=== PATIENT | female | born 1950 | race Caucasian/White ===

== ENCOUNTER 2017-02-20 17:12 | Inpatient (IN) | payer BC, OTHER ==
[~2017-02-20] VITALS: Ht 175.3 cm; Wt 110.0 kg
[~2017-02-20 17:12] MED LIST: AMIT50TA PO; ASPI325T4 PO; CLON-364 PO; CLON0.5T20 PO; ESTR0.5T PO; FURO-93 PO; FURO20TA3 PO; GABA300C10 PO; GABA600T2 PO; HYDR-3241 PO; HYDR25TA6 PO; HYDR5TAB2 PO; LEVO750T26 PO; LEVO75TA5 PO; LIDO700A5 TD; LISI-167 PO; LISI-170 PO; METO25TA91 PO; OXYC10TA32 PO; PANT40TA5 PO; POLY17PO5 PO; POTA10TA5 PO; POTA20TA14 PO; TRAM50TA2 PO
[2017-02-20] MEDS ORDERED: SODIUM CHLORIDE 0.9% 1,000ML IVBOLUS ONE ×2 (17:30→19:00)
[2017-02-20] MEDS ORDERED: SODIUM CHLORIDE FLUSH 10ML SYR IVF ONE (17:30)
[2017-02-20] MEDS ORDERED: TIZA4TAB PO (17:47)
[2017-02-20] MEDS ORDERED: DULO30CA2 PO (17:47)
[2017-02-20] MEDS ORDERED: FURO20TA3 PO (17:47)
[2017-02-20] MEDS ORDERED: SPIR25TA3 PO (17:47)
[2017-02-20] MEDS ORDERED: HYDR-879 PO (17:47)
[2017-02-20 18:03] LABS: ASPARTATE AMINO TRANSFERASE 21 U/L (15-37); BLOOD UREA NITROGEN 24 mg/dL (7-18)
[2017-02-20 18:09] LABS: IS PT STATUS REG ER OR PRE ER? YES
[2017-02-20] MEDS ORDERED: POLYETHYLENE GLYCOL 17 GM PACKET PO PRN (21:00)
[2017-02-20] MEDS ORDERED: DOCUSATE 100 MG CAPSULE PO PRN (21:00)
[2017-02-20] MEDS ORDERED: ACETAMINOPHEN 325 MG TABLET PO PRN (21:00)
[2017-02-20] MEDS ORDERED: TRAZODONE 50MG TABLET PO PRN (21:00)
[2017-02-20] MEDS ORDERED: BISACODYL 10 MG SUPP PR PRN (21:00)
[2017-02-20] MEDS ORDERED: LABETALOL 5MG/ML, 20ML IVPush PRN (21:00)
[2017-02-20] MEDS: SODIUM CHLORIDE 0.9% 1,000 ML IV SCH (23:10)
[2017-02-20] MEDS: HEPARIN 5,000 UNITS/ML, 1ML SQ SCH (23:11)
[2017-02-20 23:19] VITALS: BP 112/75
[2017-02-21 03:03] VITALS: BP 108/72
[2017-02-21] MEDS: GABAPENTIN 300 MG CAPSULE PO SCH ×2 (05:54→10:17)
[2017-02-21] MEDS: HEPARIN 5,000 UNITS/ML, 1ML SQ SCH (05:54)
[2017-02-21] MEDS: HYDROcodone/APAP 10/325 MG TABLET PO SCH ×2 (05:54→11:00)
[2017-02-21] MEDS ORDERED: LEVOTHYROXINE 75 MCG TABLET PO SCH (06:00)
[2017-02-21] MEDS ORDERED: ASPIRIN 325 MG TABLET PO SCH (06:00)
[2017-02-21 06:37] LABS: BLOOD UREA NITROGEN 20 mg/dL (7-18)
[2017-02-21 07:13] VITALS: BP 134/74
[2017-02-21] MEDS: SODIUM CHLORIDE 0.9% 1,000 ML IV SCH (08:16)
[2017-02-21] MEDS ORDERED: TIZANIDINE 4MG TABLET PO SCH (09:00)
[2017-02-21] MEDS ORDERED: DULOXETINE 30 MG CAPSULE.DR PO SCH (09:00)
[2017-02-21] MEDS ORDERED: FURO20TA3 PO (11:34)
[2017-02-21] MEDS ORDERED: AMOX1TAB61 PO (17:38)
== END 2017-02-21 13:28 | disposition home or self-care (01) | DRG 640 ==
LOC: ED 19:25 → EDIP 19:31 → ED 19:36 → 4EST 20:36
PROVIDERS: ADMIT Internal Medicine; ATTEND Internal Medicine
DX: E86.1 Hypovolemia (principal); N17.0 Acute kidney failure with tubular necrosis; I50.32 Chronic diastolic (congestive) heart failure; N39.0 Urinary tract infection, site not specified; I95.89 Other hypotension; B34.9 Viral infection, unspecified; R79.89 Other specified abnormal findings of blood chemistry; I11.0 Hypertensive heart disease with heart failure; Z86.73 Personal history of transient ischemic attack (TIA), and cerebral infarction without residual deficits; J44.9 Chronic obstructive pulmonary disease, unspecified; Z83.3 Family history of diabetes mellitus; Z82.49 Family history of ischemic heart disease and other diseases of the circulatory system; I48.0 Paroxysmal atrial fibrillation; F41.9 Anxiety disorder, unspecified; E03.9 Hypothyroidism, unspecified; D64.9 Anemia, unspecified; D72.829 Elevated white blood cell count, unspecified; Z98.84 Bariatric surgery status; G89.29 Other chronic pain; M54.9 Dorsalgia, unspecified; I67.1 Cerebral aneurysm, nonruptured; B96.20 Unspecified Escherichia coli [E. coli] as the cause of diseases classified elsewhere; E11.9 Type 2 diabetes mellitus without complications; Z95.0 Presence of cardiac pacemaker
CPT/HCPCS: 36415; 70450; 71010; 80048; 80053; 81001; 82533; 83735; 84439; 84443; 84484; 85025; 87077; 87086; 87186; 93005; 96360; 96361; J1644; J7030

== ENCOUNTER 2017-08-05 10:19 | Day surgery (SDC) | payer BC, OTHER ==
[~2017-08-05] VITALS: Ht 172.7 cm; Wt 98.1 kg
[~2017-08-05 10:19] MED LIST changes: +AMOX1TAB61 PO; +ASPI325T17 PO; -ASPI325T4 PO; +DULO30CA2 PO; +HYDR-879 PO; -OXYC10TA32 PO; +OXYC10TA47 PO; +SPIR25TA3 PO; +TIZA4TAB PO
[2017-08-05] MEDS ORDERED: LACTATED RINGERS 1,000 ML IV SCH (11:45)
[2017-08-05] MEDS ORDERED: EPINEPHRINE 1 MG/ML, 1ML ONE (11:56)
[2017-08-05] MEDS ORDERED: BUPIVACAINE/PF 0.5% ONE (11:56)
[2017-08-05 12:12] VITALS: BP 136/85
[2017-08-05] MEDS ORDERED: FENTANYL PF 100 MCG/2ML ONE (12:19)
[2017-08-05] MEDS ORDERED: MIDAZOLAM 1 MG/ML, 2ML ONE (12:19)
[2017-08-05] MEDS ORDERED: PROPOFOL 10 MG/ML, 20ML ONE (12:22)
[2017-08-05] MEDS ORDERED: ONDANSETRON 2MG/ML, 2ML ONE (12:22)
[2017-08-05] MEDS ORDERED: DEXAMETHASONE 4 MG/ML, 1ML ONE ×2 (12:23)
[2017-08-05] MEDS ORDERED: CLINDAMYCIN 150 MG/ML, 6ML ONE (13:10)
[2017-08-05] MEDS ORDERED: FENTANYL PF 100 MCG/2ML IV PRN (14:00)
[2017-08-05] MEDS ORDERED: ONDANSETRON 2MG/ML, 2ML IVPush PRN (14:00)
[2017-08-05] MEDS ORDERED: ACETAMINOPHEN 325 MG TABLET PO PRN (14:00)
[2017-08-05] MEDS ORDERED: KETOROLAC 30 MG/1 ML IV PRN (14:00)
[2017-08-05] MEDS ORDERED: OXYcodone 5 MG/5 ML ORAL.SOL UDC PO PRN (14:00)
== END 2017-08-05 15:40 ==
LOC: OUT 10:19
PROVIDERS: ATTEND Orthopaedic Surgery
DX: M65.331 Trigger finger, right middle finger (principal); K21.9 Gastro-esophageal reflux disease without esophagitis; Z90.710 Acquired absence of both cervix and uterus; Z87.39 Personal history of other diseases of the musculoskeletal system and connective tissue; Z98.890 Other specified postprocedural states
CPT/HCPCS: 26055; 93005; J0171; J1100; J2250; J2405; J2704; J3010; J3490; J7120

== ENCOUNTER 2017-08-18 15:01 | Emergency (ER) | payer BC, OTHER ==
[~2017-08-18] VITALS: Ht 167.6 cm; Wt 100.5 kg
[2017-08-18] MEDS ORDERED: CLINDAMYCIN PMX 600MG/50ML 50 ML ONE (15:55)
[2017-08-18] MEDS ORDERED: CLINDAMYCIN PMX 600MG/50ML 50 ML IV ONE (16:00)
[2017-08-18] MEDS ORDERED: SODIUM CHLORIDE FLUSH 10ML SYR IVF ONE (16:00)
[2017-08-18 16:05] LABS: HEMATOCRIT 35.4 % (34.6-47.8); HEMOGLOBIN 11.6 g/dL (11.7-16.4); WHITE BLOOD COUNT 7.5 x10^3/uL (3.4-10)
[2017-08-18 16:15] LABS: BLOOD UREA NITROGEN 27 mg/dL (7-18)
[2017-08-18 17:06] VITALS: BP 115/70
[2017-08-19] MEDS ORDERED: ASPI-496 PO (17:14)
[2017-08-19] MEDS ORDERED: POTA10TA5 PO (17:15)
[2017-08-19] MEDS ORDERED: FURO20TA3 PO (17:15)
== END 2017-08-18 17:42 | disposition home or self-care (01) ==
LOC: ED 17:30
DX: L03.113 Cellulitis of right upper limb (principal); I10 Essential (primary) hypertension; E11.9 Type 2 diabetes mellitus without complications; Z95.0 Presence of cardiac pacemaker
CPT/HCPCS: 36415; 80048; 82040; 85025; 85651; 86141; 96365

== ENCOUNTER 2017-08-19 16:09 | Inpatient (IN) | payer BC, OTHER ==
[~2017-08-19] VITALS: Ht 172.7 cm; Wt 107.0 kg
[2017-08-19] MEDS ORDERED: LIDOCAINE 1%, 2ML ONE (16:41)
[2017-08-19] MEDS ORDERED: PLEASE ENTER HEIGHT AND WEIGHT MC SCH (17:00)
[2017-08-19] MEDS ORDERED: LIDOCAINE 1%, 2ML SQ PRN (17:00)
[2017-08-19 17:05] VITALS: BP 119/69
[2017-08-19] MEDS: LACTATED RINGERS 1,000 ML IV SCH (17:11)
[2017-08-19] MEDS ORDERED: ASPI-496 PO (17:14)
[2017-08-19] MEDS ORDERED: FURO20TA3 PO (17:15)
[2017-08-19] MEDS ORDERED: POTA10TA5 PO (17:15)
[2017-08-19] MEDS ORDERED: FENTANYL PF 100 MCG/2ML ONE ×2 (18:59→19:57)
[2017-08-19] MEDS ORDERED: METOCLOPRAMIDE 5 MG/ML, 2ML ONE (19:00)
[2017-08-19] MEDS ORDERED: ONDANSETRON 2MG/ML, 2ML ONE (19:00)
[2017-08-19] MEDS ORDERED: PROPOFOL 10 MG/ML, 20ML ONE (19:00)
[2017-08-19] MEDS ORDERED: LIDOCAINE-MPF 2% ,5ML ONE (19:00)
[2017-08-19] MEDS ORDERED: CLINDAMYCIN 150 MG/ML, 6ML ONE (19:06)
[2017-08-19] MEDS ORDERED: PIPERACILLIN/TAZO/PMX 3.375GM 50 ML ONE (19:24)
[2017-08-19] MEDS ORDERED: VANCOMYCIN 1,000 MG ONE (19:24)
[2017-08-19] MEDS ORDERED: METOPROLOL 1 MG/ML, 5ML IV PRN (19:30)
[2017-08-19] MEDS ORDERED: hydrALAzine 20 MG/ML, 1ML IV PRN (19:30)
[2017-08-19] MEDS ORDERED: LABETALOL 5MG/ML, 20ML IV PRN (19:30)
[2017-08-19] MEDS ORDERED: MEPERIDINE/PF 25MG/0.5ML IVPush PRN (19:30)
[2017-08-19] MEDS ORDERED: HYDROmorphone 1 MG/ML, 1ML IV PRN (19:30)
[2017-08-19] MEDS ORDERED: EPHEDRINE 50 MG/ML, 1ML IVPush PRN (19:30)
[2017-08-19] MEDS ORDERED: ALBUTEROL SULFATE 2.5 MG/3 ML NPPB PRN (19:30)
[2017-08-19] MEDS ORDERED: ONDANSETRON 2MG/ML, 2ML IVPush PRN (19:30)
[2017-08-19] MEDS ORDERED: ACETAMINOPHEN 325 MG TABLET PO PRN (19:30)
[2017-08-19] MEDS ORDERED: OXYcodone 5 MG/5 ML ORAL.SOL UDC PO PRN (19:30)
[2017-08-19] MEDS ORDERED: OXYcodone 5 MG/5 ML ORAL.SOL UDC ONE (19:57)
[2017-08-19] MEDS: FENTANYL PF 100 MCG/2ML IV PRN ×2 (20:00→20:18)
[2017-08-19] MEDS ORDERED: FUROSEMIDE MC SCH (21:30)
[2017-08-19] MEDS ORDERED: GABAPENTIN 300 MG CAPSULE PO SCH (21:30)
[2017-08-19] MEDS ORDERED: POTASSIUM MC SCH (21:30)
[2017-08-19] MEDS ORDERED: ONDANSETRON 2MG/ML, 2ML IV PRN (21:30)
[2017-08-19] MEDS: morphine SULFATE 10 MG/ML, 1ML IV PRN ×2 (22:13→23:13)
[2017-08-19] MEDS: HYDROcodone/APAP 10/325 MG TABLET PO PRN (22:13)
[2017-08-19] MEDS ORDERED: FUROSEMIDE 20 MG TABLET PO PRN (23:00)
[2017-08-19] MEDS ORDERED: POTASSIUM CHLORIDE 10 MEQ TABLET.ER PO PRN (23:00)
[2017-08-19] MEDS: GABAPENTIN 300 MG CAPSULE PO SCH (23:05)
[2017-08-19] MEDS: AMITRIPTYLINE 50 MG TABLET PO SCH (23:05)
[2017-08-20] MEDS: morphine SULFATE 10 MG/ML, 1ML IV PRN ×3 (00:46→13:45)
[2017-08-20] MEDS: PIPERACILLIN/TAZO/PMX 3.375GM 50 ML IV SCH ×3 (04:02→21:32)
[2017-08-20] MEDS: HYDROcodone/APAP 10/325 MG TABLET PO PRN ×3 (04:23→17:57)
[2017-08-20 05:01] VITALS: BP 100/68
[2017-08-20] MEDS: ASPIRIN 81 MG TABLET EC PO SCH (05:52)
[2017-08-20] MEDS: LEVOTHYROXINE 75 MCG TABLET PO SCH (05:52)
[2017-08-20] MEDS ORDERED: VANCOMYCIN PMX 1GM/200ML 200 ML IVPB ONE (07:30)
[2017-08-20] MEDS: DULOXETINE 30 MG CAPSULE.DR PO SCH (08:38)
[2017-08-20] MEDS: TIZANIDINE 4MG TABLET PO SCH (08:38)
[2017-08-20] MEDS: SPIRONOLACTONE 25 MG TABLET PO SCH ×2 (08:38→21:32)
[2017-08-20] MEDS: GABAPENTIN 300 MG CAPSULE PO SCH ×2 (08:39→21:33)
[2017-08-20 13:07] VITALS: BP 99/63
[2017-08-20 13:21] VITALS: BP 116/55
[2017-08-20 20:03] VITALS: BP 91/62
[2017-08-20] MEDS: AMITRIPTYLINE 50 MG TABLET PO SCH (21:33)
[2017-08-21 04:29] VITALS: BP 122/78
[2017-08-21] MEDS: HYDROcodone/APAP 10/325 MG TABLET PO PRN ×3 (05:33→18:17)
[2017-08-21] MEDS: LEVOTHYROXINE 75 MCG TABLET PO SCH (05:33)
[2017-08-21] MEDS: ASPIRIN 81 MG TABLET EC PO SCH (05:33)
[2017-08-21] MEDS: PIPERACILLIN/TAZO/PMX 3.375GM 50 ML IV SCH ×2 (05:33→13:01)
[2017-08-21] MEDS: SPIRONOLACTONE 25 MG TABLET PO SCH ×2 (07:58→20:43)
[2017-08-21] MEDS: TIZANIDINE 4MG TABLET PO SCH (07:59)
[2017-08-21] MEDS: GABAPENTIN 300 MG CAPSULE PO SCH ×2 (07:59→20:43)
[2017-08-21] MEDS: DULOXETINE 30 MG CAPSULE.DR PO SCH (07:59)
[2017-08-21 08:06] VITALS: BP 130/92
[2017-08-21 13:34] LABS: HEMATOCRIT 30.9 % (34.6-47.8); HEMOGLOBIN 10.1 g/dL (11.7-16.4); WHITE BLOOD COUNT 4.6 x10^3/uL (3.4-10)
[2017-08-21 13:43] LABS: ASPARTATE AMINO TRANSFERASE 20 U/L (15-37); BLOOD UREA NITROGEN 19 mg/dL (7-18)
[2017-08-21 15:56] VITALS: BP 109/71
[2017-08-21] MEDS: AMPICILLIN/SULBACTAM 3 GM in SODIUM CHLORIDE 0.9% 100 ML IV SCH ×2 (17:43→23:38)
[2017-08-21 20:26] VITALS: BP 105/69
[2017-08-21] MEDS: AMITRIPTYLINE 50 MG TABLET PO SCH (20:43)
[2017-08-22 00:03] VITALS: BP 115/77
[2017-08-22] MEDS: HYDROcodone/APAP 10/325 MG TABLET PO PRN ×4 (00:08→18:25)
[2017-08-22] MEDS: AMPICILLIN/SULBACTAM 3 GM in SODIUM CHLORIDE 0.9% 100 ML IV SCH ×4 (05:47→23:41)
[2017-08-22] MEDS: ASPIRIN 81 MG TABLET EC PO SCH (05:47)
[2017-08-22] MEDS: LEVOTHYROXINE 75 MCG TABLET PO SCH (05:47)
[2017-08-22 07:27] VITALS: BP 136/74
[2017-08-22] MEDS: TIZANIDINE 4MG TABLET PO SCH (09:42)
[2017-08-22] MEDS: DULOXETINE 30 MG CAPSULE.DR PO SCH (09:43)
[2017-08-22] MEDS: SPIRONOLACTONE 25 MG TABLET PO SCH ×2 (09:43→20:58)
[2017-08-22] MEDS: GABAPENTIN 300 MG CAPSULE PO SCH ×2 (09:43→20:58)
[2017-08-22 13:58] VITALS: BP 122/77
[2017-08-22] MEDS: LACTATED RINGERS 1,000 ML IV SCH (17:13)
[2017-08-22 19:47] VITALS: BP 163/82
[2017-08-22] MEDS: AMITRIPTYLINE 50 MG TABLET PO SCH (20:58)
[2017-08-23 00:03] VITALS: BP 103/65
[2017-08-23] MEDS: HYDROcodone/APAP 10/325 MG TABLET PO PRN ×3 (00:24→13:23)
[2017-08-23] MEDS: AMPICILLIN/SULBACTAM 3 GM in SODIUM CHLORIDE 0.9% 100 ML IV SCH ×2 (05:32→11:30)
[2017-08-23] MEDS: ASPIRIN 81 MG TABLET EC PO SCH (05:32)
[2017-08-23] MEDS: LEVOTHYROXINE 75 MCG TABLET PO SCH (05:32)
[2017-08-23 07:15] VITALS: BP 137/80
[2017-08-23] MEDS: SPIRONOLACTONE 25 MG TABLET PO SCH (09:33)
[2017-08-23] MEDS: DULOXETINE 30 MG CAPSULE.DR PO SCH (09:33)
[2017-08-23] MEDS: GABAPENTIN 300 MG CAPSULE PO SCH (09:33)
[2017-08-23] MEDS: TIZANIDINE 4MG TABLET PO SCH (09:33)
[2017-08-23] MEDS ORDERED: AMOXICILLIN/CLAV 500-125MG TABLET PO SCH (12:30)
[2017-08-23 12:48] VITALS: BP 122/78
[2017-08-23] MEDS ORDERED: CELE200C PO (15:02)
[2017-08-23] MEDS ORDERED: TRAM50TA2 PO (15:03)
[2017-08-23] MEDS ORDERED: HYDR-3307 PO (15:04)
[2017-08-23] MEDS ORDERED: AMOX1TAB61 PO (15:06)
== END 2017-08-23 15:21 | disposition home or self-care (01) | DRG 863 ==
LOC: OUT 16:09 → 4NOR 20:50 → OUT 22:51 → INTOOBSV 23:47 → 4NOR 23:47 → OBSVTOIN 08-21 15:23 → DCLOUNGE 08-23 14:58
PROVIDERS: ADMIT Orthopaedic Surgery; ATTEND Orthopaedic Surgery
DX: T81.4XXA Infection following a procedure, initial encounter (principal); G89.29 Other chronic pain; Z95.0 Presence of cardiac pacemaker; Z82.49 Family history of ischemic heart disease and other diseases of the circulatory system; Z82.3 Family history of stroke; Z80.41 Family history of malignant neoplasm of ovary; Z90.710 Acquired absence of both cervix and uterus; Z87.891 Personal history of nicotine dependence; Z88.1 Allergy status to other antibiotic agents
CPT/HCPCS: 36415; 80053; 85025; 85651; 86140; 87015; 87070; 87075; 87077; 87102; 87116; 87186; 87205; 87206; G0378; J0295; J2405; J2543; J2704; J3010; J3370; J3490; J2270; J2765; J7120

== ENCOUNTER 2017-10-08 11:21 | Inpatient (IN) | payer BC, OTHER ==
[~2017-10-08] VITALS: Ht 175.3 cm; Wt 98.2 kg
[~2017-10-08 11:21] MED LIST changes: +ASPI-496 PO; +CELE200C PO; +HYDR-3307 PO
[2017-10-08] MEDS ORDERED: SODIUM CHLORIDE FLUSH 10ML SYR IVF ONE (12:00)
[2017-10-08] MEDS ORDERED: SODIUM CHLORIDE 0.9% 1,000ML IVBOLUS ONE ×2 (12:00→13:00)
[2017-10-08 12:17] LABS: RAPID INFLUENZA A Negative (Negative); RAPID INFLUENZA B Negative (Negative)
[2017-10-08 12:43] LABS: ALANINE AMINOTRANSFERASE 15 U/L (12-78); ALBUMIN 3.4 g/dL (3.4-5.0); ANION GAP 8 mmol/L (5-15); CALCIUM 7.9 mg/dL (8.5-10.1); CHLORIDE 107 mmol/L (98-107); CREATININE 0.87 mg/dL (0.55-1.02)
[2017-10-08 12:45] LABS: ALKALINE PHOSPHATASE 136 U/L (45-117); BASOPHILS # (AUTO) 0.02 x10^3/uL (0-0.1); BASOPHILS % (AUTO) 0 % (0-1); EOSINOPHILS # (AUTO) 0.05 x10^3/uL (0-0.4); EOSINOPHILS % (AUTO) 1 % (1-7); LYMPHOCYTES # (AUTO) 0.91 x10^3/uL (1-3.4); LYMPHOCYTES % (AUTO) 12 % (22-44); MD NO; MEAN CORPUSCULAR HEMOGLOBIN 25.6 pg (27.0-34.8); MEAN CORPUSCULAR HGB CONC 32.2 g/dL (32.4-35.8); MEAN CORPUSCULAR VOLUME 79.3 fL (80-100); MEAN PLATELET VOLUME 8.6 fL (7.4-10.4); MONOCYTES # (AUTO) 0.49 x10^3/uL (0.2-0.8); MONOCYTES % (AUTO) 7 % (2-9); NEUTROPHILS # (AUTO) 6.08 x10^3/uL (1.8-6.8); NEUTROPHILS % (AUTO) 81 % (42-75); PLATELET COUNT 185 x10^3/uL (130-400); RED BLOOD COUNT 4.42 x10^6/uL (3.82-5.3); RED CELL DISTRIBUTION WIDTH 16.5 % (9.6-15.2); TOTAL PROTEIN 6.5 g/dL (6.4-8.2)
[2017-10-08] MEDS ORDERED: LEVOFLOXACIN/PMX 750MG/150ML 150 ML IVPB ONE (13:00)
[2017-10-08] MEDS ORDERED: LEVOFLOXACIN/PMX 750MG/150ML 150 ML ONE (13:14)
[2017-10-08] MEDS ORDERED: SODIUM CHLORIDE FLUSH 10ML SYR IVF PRN (13:30)
[2017-10-08] MEDS ORDERED: METO25TA35 PO (13:44)
[2017-10-08] MEDS ORDERED: DULO30CA2 PO (13:44)
[2017-10-08] MEDS ORDERED: FURO20TA3 PO (13:44)
[2017-10-08] MEDS ORDERED: RANI150T4 PO (13:44)
[2017-10-08] MEDS ORDERED: TRAM50TA2 PO (13:44)
[2017-10-08] MEDS ORDERED: GABA300C10 PO ×2 (13:44)
[2017-10-08] MEDS ORDERED: SPIR25TA3 PO (13:44)
[2017-10-08] MEDS ORDERED: ONDANSETRON 2MG/ML, 2ML IVPush PRN (14:30)
[2017-10-08] MEDS ORDERED: BISACODYL 10 MG SUPP PR PRN (14:30)
[2017-10-08] MEDS ORDERED: GUAIFENESIN/DM 200-20MG, 10ML UDC PO PRN (14:30)
[2017-10-08] MEDS ORDERED: LABETALOL 5MG/ML, 20ML IVPush PRN (14:30)
[2017-10-08] MEDS ORDERED: POLYETHYLENE GLYCOL 17 GM PACKET PO PRN (14:30)
[2017-10-08] MEDS ORDERED: ENALAPRILAT 1.25 MG/ML, 2ML IVPush PRN (14:30)
[2017-10-08] MEDS ORDERED: DOCUSATE 100 MG CAPSULE PO PRN (14:30)
[2017-10-08] MEDS ORDERED: ACETAMINOPHEN 325 MG TABLET PO PRN (14:30)
[2017-10-08 15:29] VITALS: BP 109/66
[2017-10-08] MEDS ORDERED: GUAIFENESIN/DM 100-10MG, 5ML UDC PO PRN (15:30)
[2017-10-08] MEDS: LEVOFLOXACIN/PMX 750MG/150ML 150 ML IV SCH (15:30)
[2017-10-08] MEDS: HYDROcodone/APAP 10/325 MG TABLET PO PRN ×2 (15:45→19:58)
[2017-10-08 19:06] VITALS: BP 115/70
[2017-10-08] MEDS: GABAPENTIN 300 MG CAPSULE PO SCH (19:58)
[2017-10-08] MEDS: ENOXAPARIN 40 MG/0.4 ML SQ SCH (19:58)
[2017-10-08] MEDS: AMITRIPTYLINE 50 MG TABLET PO SCH (19:58)
[2017-10-08] MEDS: SODIUM CHLORIDE 0.9% 1,000 ML IV SCH (22:38)
[2017-10-09 01:20] VITALS: BP 109/66
[2017-10-09] MEDS: HYDROcodone/APAP 10/325 MG TABLET PO PRN ×2 (03:12→23:16)
[2017-10-09 05:22] LABS: BASOPHILS # (AUTO) 0.01 x10^3/uL (0-0.1); BASOPHILS % (AUTO) 0 % (0-1); EOSINOPHILS # (AUTO) 0.12 x10^3/uL (0-0.4); EOSINOPHILS % (AUTO) 1 % (1-7); LYMPHOCYTES # (AUTO) 1.96 x10^3/uL (1-3.4); LYMPHOCYTES % (AUTO) 23 % (22-44); MD NO; MEAN CORPUSCULAR HEMOGLOBIN 25.8 pg (27.0-34.8); MEAN CORPUSCULAR HGB CONC 32.3 g/dL (32.4-35.8); MEAN CORPUSCULAR VOLUME 80.1 fL (80-100); MEAN PLATELET VOLUME 8.8 fL (7.4-10.4); MONOCYTES # (AUTO) 0.77 x10^3/uL (0.2-0.8); MONOCYTES % (AUTO) 9 % (2-9); NEUTROPHILS # (AUTO) 5.74 x10^3/uL (1.8-6.8); NEUTROPHILS % (AUTO) 67 % (42-75); PLATELET COUNT 153 x10^3/uL (130-400); RED BLOOD COUNT 3.67 x10^6/uL (3.82-5.3); RED CELL DISTRIBUTION WIDTH 16.6 % (9.6-15.2)
[2017-10-09] MEDS: ASPIRIN 325 MG TABLET PO SCH (06:05)
[2017-10-09] MEDS: LEVOTHYROXINE 75 MCG TABLET PO SCH (06:05)
[2017-10-09 06:40] LABS: ANION GAP 9 mmol/L (5-15); CALCIUM 8.2 mg/dL (8.5-10.1); CHLORIDE 114 mmol/L (98-107); CREATININE 0.63 mg/dL (0.55-1.02)
[2017-10-09 07:53] VITALS: BP 119/83
[2017-10-09] MEDS: METOPROLOL TARTRATE 25 MG TABLET PO SCH (09:46)
[2017-10-09] MEDS: DULOXETINE 30 MG CAPSULE.DR PO SCH (09:46)
[2017-10-09] MEDS: SODIUM CHLORIDE 0.9% 1,000 ML IV SCH (09:46)
[2017-10-09] MEDS: GABAPENTIN 300 MG CAPSULE PO SCH ×2 (09:46→20:02)
[2017-10-09 12:19] VITALS: BP 108/68
[2017-10-09] MEDS: LEVOFLOXACIN/PMX 750MG/150ML 150 ML IV SCH (16:03)
[2017-10-09 19:06] VITALS: BP 153/85
[2017-10-09] MEDS: ENOXAPARIN 40 MG/0.4 ML SQ SCH (20:01)
[2017-10-09] MEDS: AMITRIPTYLINE 50 MG TABLET PO SCH (20:01)
[2017-10-09] MEDS: FUROSEMIDE 20 MG TABLET PO SCH (20:02)
[2017-10-10 02:53] VITALS: BP 96/63
[2017-10-10] MEDS: ASPIRIN 325 MG TABLET PO SCH (05:16)
[2017-10-10] MEDS: LEVOTHYROXINE 75 MCG TABLET PO SCH (05:16)
[2017-10-10 06:01] LABS: BASOPHILS # (AUTO) 0.03 x10^3/uL (0-0.1); BASOPHILS % (AUTO) 0 % (0-1); EOSINOPHILS % (AUTO) 3 % (1-7); LYMPHOCYTES # (AUTO) 2.07 x10^3/uL (1-3.4); LYMPHOCYTES % (AUTO) 31 % (22-44); MD NO; MEAN CORPUSCULAR HEMOGLOBIN 25.4 pg (27.0-34.8); MEAN CORPUSCULAR HGB CONC 32.1 g/dL (32.4-35.8); MEAN CORPUSCULAR VOLUME 79.1 fL (80-100); MEAN PLATELET VOLUME 8.1 fL (7.4-10.4); MONOCYTES # (AUTO) 0.57 x10^3/uL (0.2-0.8); MONOCYTES % (AUTO) 9 % (2-9); NEUTROPHILS # (AUTO) 3.82 x10^3/uL (1.8-6.8); NEUTROPHILS % (AUTO) 57 % (42-75); PLATELET COUNT 163 x10^3/uL (130-400); RED BLOOD COUNT 3.85 x10^6/uL (3.82-5.3); RED CELL DISTRIBUTION WIDTH 16.5 % (9.6-15.2)
[2017-10-10 06:10] LABS: ANION GAP 7 mmol/L (5-15); CALCIUM 8.1 mg/dL (8.5-10.1); CHLORIDE 113 mmol/L (98-107); CREATININE 0.77 mg/dL (0.55-1.02)
[2017-10-10 07:55] VITALS: BP 131/76
[2017-10-10] MEDS: DULOXETINE 30 MG CAPSULE.DR PO SCH (07:56)
[2017-10-10] MEDS: FUROSEMIDE 20 MG TABLET PO SCH (07:56)
[2017-10-10] MEDS: METOPROLOL TARTRATE 25 MG TABLET PO SCH (07:56)
[2017-10-10] MEDS: GABAPENTIN 300 MG CAPSULE PO SCH (07:56)
[2017-10-10] MEDS ORDERED: GUAI200T3 PO (11:06)
[2017-10-10] MEDS ORDERED: LACT1CAP35 PO (11:06)
[2017-10-10] MEDS ORDERED: LEVO750T26 PO (11:06)
[2017-10-10] MEDS ORDERED: FLU VACC QS2017-18 (36MOS+) UP/PF 0.5 ML IM-VACC ONE (12:30)
[2017-10-10 14:43] VITALS: BP 127/80
== END 2017-10-10 15:34 | disposition home or self-care (01) | DRG 193 ==
LOC: ED 11:57 → EDIP 13:08 → 3NE 14:56 → DCLOUNGE 10-10 15:23
PROVIDERS: ADMIT Family Medicine; ATTEND Family Medicine
DX: J15.9 Unspecified bacterial pneumonia (principal); J96.01 Acute respiratory failure with hypoxia; I50.30 Unspecified diastolic (congestive) heart failure; F11.20 Opioid dependence, uncomplicated; E11.40 Type 2 diabetes mellitus with diabetic neuropathy, unspecified; I11.0 Hypertensive heart disease with heart failure; I48.0 Paroxysmal atrial fibrillation; F41.9 Anxiety disorder, unspecified; G89.29 Other chronic pain; D50.9 Iron deficiency anemia, unspecified; E03.9 Hypothyroidism, unspecified; F12.90 Cannabis use, unspecified, uncomplicated; E66.9 Obesity, unspecified; Z68.32 Body mass index [BMI] 32.0-32.9, adult; Z82.49 Family history of ischemic heart disease and other diseases of the circulatory system; Z83.3 Family history of diabetes mellitus; Z87.01 Personal history of pneumonia (recurrent); Z88.1 Allergy status to other antibiotic agents; Z95.0 Presence of cardiac pacemaker; Z98.84 Bariatric surgery status; Z23 Encounter for immunization
CPT/HCPCS: 36415; 70450; 71045; 80048; 80053; 83605; 84145; 85025; 87040; 87070; 87205; 87400; 90686; 93005; 96365; J1650; J1956; J7030

== ENCOUNTER → 2017-10-28 | Outpatient (CLI) | payer BC, OTHER ==
[~2017-10-28] MED LIST changes: +GUAI200T3 PO; +LACT1CAP35 PO; +METO25TA35 PO; +RANI150T4 PO
== END | disposition home or self-care (01) ==
LOC: RAD 09:31
PROVIDERS: ATTEND Family Medicine
DX: M48.02 Spinal stenosis, cervical region (principal); M54.5 Low back pain; M50.33 Other cervical disc degeneration, cervicothoracic region; Z95.0 Presence of cardiac pacemaker
CPT/HCPCS: 71046; 72050

== ENCOUNTER 2017-12-02 21:42 | Inpatient (IN) | payer BC, MEDICARE, OTHER ==
[~2017-12-02] VITALS: Ht 172.7 cm; Wt 99.7 kg
[2017-12-02] MEDS ORDERED: HYDROmorphone 1 MG/ML, 1ML IM ONE (22:30)
[2017-12-02] MEDS ORDERED: ONDANSETRON ODT 4 MG PO ONE (22:30)
[2017-12-02] MEDS ORDERED: ONDANSETRON 2MG/ML, 2ML ONE (22:43)
[2017-12-02] MEDS ORDERED: HYDROmorphone 1 MG/ML, 1ML ONE (22:43)
[2017-12-02] MEDS ORDERED: ONDANSETRON ODT 4 MG ONE (22:43)
[2017-12-02] MEDS ORDERED: SODIUM CHLORIDE 0.9% 1,000 ML IV ONE (22:44)
[2017-12-02] MEDS ORDERED: MORPHINE SULFATE 4 MG/ML, 1ML IVPush PRN (23:00)
[2017-12-02] MEDS ORDERED: SODIUM CHLORIDE FLUSH 10ML SYR IVF ONE (23:00)
[2017-12-02 23:16] LABS: BASOPHILS # (AUTO) 0.05 x10^3/uL (0-0.1); BASOPHILS % (AUTO) 1 % (0-1); EOSINOPHILS # (AUTO) 0.23 x10^3/uL (0-0.4); EOSINOPHILS % (AUTO) 3 % (1-7); LYMPHOCYTES # (AUTO) 3.04 x10^3/uL (1-3.4); LYMPHOCYTES % (AUTO) 40 % (22-44); MD NO; MEAN CORPUSCULAR HEMOGLOBIN 25.3 pg (27.0-34.8); MEAN CORPUSCULAR HGB CONC 31.9 g/dL (32.4-35.8); MEAN CORPUSCULAR VOLUME 79.2 fL (80-100); MEAN PLATELET VOLUME 8.3 fL (7.4-10.4); MONOCYTES # (AUTO) 0.66 x10^3/uL (0.2-0.8); MONOCYTES % (AUTO) 9 % (2-9); NEUTROPHILS # (AUTO) 3.63 x10^3/uL (1.8-6.8); NEUTROPHILS % (AUTO) 48 % (42-75); PLATELET COUNT 259 x10^3/uL (130-400); RED BLOOD COUNT 4.29 x10^6/uL (3.82-5.3); RED CELL DISTRIBUTION WIDTH 17.7 % (9.6-15.2)
[2017-12-02 23:21] LABS: ALBUMIN 3.5 g/dL (3.4-5.0); ANION GAP 8 mmol/L (5-15); CALCIUM 8.3 mg/dL (8.5-10.1); CHLORIDE 111 mmol/L (98-107)
[2017-12-03] MEDS ORDERED: AMPICILLIN/SULBACTAM 3 GM in SODIUM CHLORIDE 0.9% 100 ML IV ONE
[2017-12-03] MEDS ORDERED: MORPHINE SULFATE 4 MG/ML, 1ML ONE ×2 (00:32→09:55)
[2017-12-03 01:24] VITALS: BP 125/81
[2017-12-03] MEDS ORDERED: ACETAMINOPHEN 325 MG TABLET PO PRN (02:30)
[2017-12-03] MEDS ORDERED: ONDANSETRON 2MG/ML, 2ML IVPush PRN (02:30)
[2017-12-03] MEDS ORDERED: LACTATED RINGERS 1,000 ML IV SCH (02:30)
[2017-12-03] MEDS ORDERED: hydrALAzine 20 MG/ML, 1ML IVPush PRN (02:30)
[2017-12-03] MEDS: OXYcodone IR 5MG TABLET PO PRN ×3 (02:43→11:03)
[2017-12-03 05:44] LABS: BASOPHILS # (AUTO) 0.03 x10^3/uL (0-0.1); BASOPHILS % (AUTO) 0 % (0-1); EOSINOPHILS # (AUTO) 0.22 x10^3/uL (0-0.4); EOSINOPHILS % (AUTO) 3 % (1-7); LYMPHOCYTES # (AUTO) 2.94 x10^3/uL (1-3.4); LYMPHOCYTES % (AUTO) 43 % (22-44); MD NO; MEAN CORPUSCULAR HGB CONC 31.5 g/dL (32.4-35.8); MEAN CORPUSCULAR VOLUME 79.5 fL (80-100); MEAN PLATELET VOLUME 8.1 fL (7.4-10.4); MONOCYTES # (AUTO) 0.64 x10^3/uL (0.2-0.8); MONOCYTES % (AUTO) 9 % (2-9); NEUTROPHILS # (AUTO) 3.02 x10^3/uL (1.8-6.8); NEUTROPHILS % (AUTO) 44 % (42-75); PLATELET COUNT 229 x10^3/uL (130-400); RED BLOOD COUNT 3.98 x10^6/uL (3.82-5.3); RED CELL DISTRIBUTION WIDTH 17.3 % (9.6-15.2)
[2017-12-03] MEDS ORDERED: LEVOTHYROXINE 75 MCG TABLET PO SCH (06:00)
[2017-12-03] MEDS: AMPICILLIN/SULBACTAM 1,500 MG in SODIUM CHLORIDE 0.9% 50 ML IV SCH ×2 (06:58→12:32)
[2017-12-03 07:35] VITALS: BP 99/65
[2017-12-03] MEDS ORDERED: SPIRONOLACTONE 25 MG TABLET PO SCH (09:00)
[2017-12-03] MEDS ORDERED: DULOXETINE 30 MG CAPSULE.DR PO SCH (09:00)
[2017-12-03] MEDS ORDERED: METOPROLOL TARTRATE 25 MG TABLET PO SCH (09:00)
[2017-12-03] MEDS ORDERED: FAMOTIDINE 20 MG TABLET PO SCH (09:00)
[2017-12-03] MEDS ORDERED: GABAPENTIN 300 MG CAPSULE PO SCH ×3 (09:00→21:00)
[2017-12-03] MEDS ORDERED: morphine SULFATE 10 MG/ML, 1ML IVPush PRN (10:00)
[2017-12-03 13:17] VITALS: BP 95/62
[2017-12-03] MEDS ORDERED: HYDR2TAB29 PO (14:23)
[2017-12-03] MEDS ORDERED: AMOX1TAB61 PO (14:24)
[2017-12-03] MEDS ORDERED: AMITRIPTYLINE 50 MG TABLET PO SCH (21:00)
== END 2017-12-03 14:48 | disposition home or self-care (01) | DRG 863 ==
LOC: ED 23:50 → EDIP 12-03 00:28 → 4NOR 12-03 01:22 → DCLOUNGE 12-03 14:38
PROVIDERS: ADMIT Hospitalist; ATTEND Hospitalist
DX: T81.4XXA Infection following a procedure, initial encounter (principal); D50.9 Iron deficiency anemia, unspecified; E03.9 Hypothyroidism, unspecified; E11.9 Type 2 diabetes mellitus without complications; G89.29 Other chronic pain; Y83.8 Other surgical procedures as the cause of abnormal reaction of the patient, or of later complication, without mention of misadventure at the time of the procedure; Y92.89 Other specified places as the place of occurrence of the external cause; L03.011 Cellulitis of right finger; I10 Essential (primary) hypertension; K21.9 Gastro-esophageal reflux disease without esophagitis; M54.9 Dorsalgia, unspecified
CPT/HCPCS: 36415; 80048; 82040; 85025; 96372; 96374; J0295; J1170; Q0162; J2270; J7030; J7120

== ENCOUNTER 2018-01-25 21:40 | Emergency (ER) | payer MEDICARE, BC ==
[~2018-01-25] VITALS: Ht 172.7 cm; Wt 100.1 kg
[~2018-01-25 21:40] MED LIST changes: +HYDR2TAB29 PO
[2018-01-25 21:41] VITALS: BP 117/80
[2018-01-25] MEDS ORDERED: OXYcodone/APAP 10/325MG TABLET PO ONE (22:30)
[2018-01-25] MEDS ORDERED: hydrOXyzine 50MG TABLET ONE (22:33)
[2018-01-25] MEDS ORDERED: OXYcodone/APAP 10/325MG TABLET ONE (22:33)
== END 2018-01-26 00:04 | disposition home or self-care (01) ==
LOC: ED 22:01
DX: G89.11 Acute pain due to trauma (principal); M96.89 Other intraoperative and postprocedural complications and disorders of the musculoskeletal system; E11.9 Type 2 diabetes mellitus without complications; I10 Essential (primary) hypertension; Z98.890 Other specified postprocedural states
CPT/HCPCS: 99283; Q0177

== ENCOUNTER → 2019-03-11 | Outpatient (CLI) | payer MEDICARE ==
[~2019-03-11] MED LIST changes: -CLON-364 PO; +CLON0.5T11 PO; -GABA600T2 PO; +GABA600T7 PO; +HYDR-3622 PO; -HYDR-879 PO; -HYDR5TAB2 PO; +HYDR5TAB7 PO; -SPIR25TA3 PO; +SPIR25TA5 PO
== END | disposition home or self-care (01) ==
LOC: CFH 14:53
PROVIDERS: ATTEND Internal Medicine Nephrology
DX: N32.89 Other specified disorders of bladder (principal); N17.8 Other acute kidney failure
CPT/HCPCS: 76770

== ENCOUNTER → 2020-01-19 | Outpatient (CLI) | payer OTHER ==
[~2020-01-19] MED LIST changes: +CLON-364 PO; -CLON0.5T11 PO; -GUAI200T3 PO; +GUAI200T37 PO; -HYDR-3307 PO; +HYDR-36 PO; -TIZA4TAB PO; +TIZA4TAB2 PO
== END | disposition home or self-care (01) ==
LOC: RAD 07:47
PROVIDERS: ATTEND Pain Medicine Interventional Pain Medicine
DX: T81.89XD Other complications of procedures, not elsewhere classified, subsequent encounter (principal); M25.78 Osteophyte, vertebrae; M51.46 Schmorl's nodes, lumbar region; M47.816 Spondylosis without myelopathy or radiculopathy, lumbar region; Y83.8 Other surgical procedures as the cause of abnormal reaction of the patient, or of later complication, without mention of misadventure at the time of the procedure; Y92.89 Other specified places as the place of occurrence of the external cause
CPT/HCPCS: 72148

== ENCOUNTER → 2020-09-28 | Outpatient (CLI) | payer MEDICARE ==
[~2020-09-28] MED LIST changes: +HYDR-3246 PO; -HYDR-36 PO; +HYDR5TAB13 PO; -HYDR5TAB7 PO; -PANT40TA5 PO; +PANT40TA6 PO
== END | disposition home or self-care (01) ==
LOC: EDSTATUS 11:00 → RAD 11:25
PROVIDERS: ATTEND Family Medicine
DX: N93.9 Abnormal uterine and vaginal bleeding, unspecified (principal); Z90.710 Acquired absence of both cervix and uterus
CPT/HCPCS: 76830

== ENCOUNTER → 2021-03-03 | Outpatient (CLI) | payer MEDICARE ==
[~2021-03-03] MED LIST changes: -HYDR-3246 PO; +HYDR-3248 PO; +OMNIPAQUE 350 MG/ML, 75ML BOTTLE ONE
== END | disposition home or self-care (01) ==
LOC: CFH 07:21
PROVIDERS: ATTEND Family Medicine
DX: J15.5 Pneumonia due to Escherichia coli (principal)
CPT/HCPCS: 71260; Q9967

== ENCOUNTER → 2021-04-06 | Outpatient (CLI) | payer BC, MEDICARE ==
[~2021-04-06] MED LIST changes: -OMNIPAQUE 350 MG/ML, 75ML BOTTLE ONE
== END | disposition home or self-care (01) ==
LOC: RAD 08:22
PROVIDERS: ATTEND Family Medicine
DX: S83.241A Other tear of medial meniscus, current injury, right knee, initial encounter (principal); M71.21 Synovial cyst of popliteal space [Baker], right knee; M94.261 Chondromalacia, right knee; M25.461 Effusion, right knee; M17.11 Unilateral primary osteoarthritis, right knee; G89.29 Other chronic pain; X58.XXXA Exposure to other specified factors, initial encounter; Y93.89 Activity, other specified; Y92.89 Other specified places as the place of occurrence of the external cause; Y99.8 Other external cause status

== ENCOUNTER → 2021-04-06 | Outpatient (CLI) | payer BC, MEDICARE | END | disposition home or self-care (01) | LOC: CVU 08:20 | PROVIDERS: ATTEND Internal Medicine Cardiovascular Disease | DX: I36.1 Nonrheumatic tricuspid (valve) insufficiency (principal); I11.0 Hypertensive heart disease with heart failure; I50.9 Heart failure, unspecified | CPT/HCPCS: 93306; 93356 ==

== ENCOUNTER 2021-05-01 06:02 | Observation (INO) | payer MEDICARE ==
[~2021-05-01] VITALS: Ht 172.7 cm; Wt 117.0 kg
[~2021-05-01 06:02] MED LIST changes: +DEXAMETHASONE 4 MG/ML, 1ML IVPush ONE
[2021-05-01] MEDS ORDERED: KETOROLAC 60 MG/2 ML ONE (06:15)
[2021-05-01] MEDS ORDERED: ROPIvacaine/PF 0.2%, 20 ML ONE (06:16)
[2021-05-01] MEDS ORDERED: SODIUM CHLORIDE 0.9% 50 ML ONE (06:16)
[2021-05-01] MEDS ORDERED: EPINEPHRINE 1 MG/ML, 1ML ONE (06:16)
[2021-05-01] MEDS ORDERED: TRANEXAMIC ACID 100 MG/ML, 10ML ONE ×3 (06:17→08:43)
[2021-05-01] MEDS ORDERED: METH-639 PO (06:56)
[2021-05-01] MEDS ORDERED: PREG75CA68 PO (06:58)
[2021-05-01] MEDS ORDERED: MAGNESIUM HYDROXIDE 8%, 30ML UDC PO PRN (07:00)
[2021-05-01] MEDS ORDERED: ONDANSETRON 2MG/ML, 2ML IVPush PRN (07:00)
[2021-05-01] MEDS ORDERED: PSYLLIUM PACKET PO PRN (07:00)
[2021-05-01] MEDS ORDERED: ACETAMINOPHEN 650 MG/20.3 ML UDC PO PRN (07:00)
[2021-05-01] MEDS ORDERED: SENNA/DOCUSATE TABLET PO PRN (07:00)
[2021-05-01] MEDS ORDERED: HYDROmorphone 1 MG/ML, 1ML INJ IVPush PRN ×2 (07:00→09:30)
[2021-05-01] MEDS ORDERED: METOCLOPRAMIDE 5 MG/ML, 2ML IVPush PRN (07:00)
[2021-05-01] MEDS ORDERED: ALUMINUM/MAG/SIMETHICONE 30 ML UDC PO PRN (07:00)
[2021-05-01] MEDS ORDERED: TRANEXAMIC ACID 1,000 MG in SODIUM CHLORIDE 0.9% 100 ML IVPB ONE (07:00)
[2021-05-01] MEDS ORDERED: ONDANSETRON 4 MG TABLET PO PRN (07:00)
[2021-05-01] MEDS ORDERED: PROMETHAZINE 12.5 MG SUPP PR PRN (07:00)
[2021-05-01] MEDS ORDERED: DIPHENHYDRAMINE 25 MG CAPSULE PO PRN (07:00)
[2021-05-01] MEDS ORDERED: POLYETHYLENE GLYCOL 17 GM PACKET PO PRN (07:00)
[2021-05-01] MEDS ORDERED: DIPHENHYDRAMINE 50 MG/ML, 1ML IVPush PRN (07:00)
[2021-05-01] MEDS ORDERED: VANCOMYCIN PER PHARMACY MC STA (07:28)
[2021-05-01] MEDS ORDERED: HYDROmorphone 2MG TABLET PO PRN (07:30)
[2021-05-01] MEDS ORDERED: CHLORHEXIDINE 15 ML UDC PO ONE (07:30)
[2021-05-01] MEDS ORDERED: LACTATED RINGERS 1,000 ML IV SCH (07:30)
[2021-05-01] MEDS ORDERED: LIDOCAINE-MPF 2% ,5ML ONE (07:31)
[2021-05-01] MEDS ORDERED: BUPIVACAINE/PF 0.25% ONE (07:31)
[2021-05-01] MEDS ORDERED: MIDAZOLAM 1 MG/ML, 2ML ONE (07:35)
[2021-05-01] MEDS ORDERED: FENTANYL PF 250 MCG/5ML ONE (07:35)
[2021-05-01] MEDS ORDERED: NEOSTIGMINE 1 MG/ML, 10ML ONE (07:36)
[2021-05-01] MEDS ORDERED: DEXAMETHASONE 4 MG/ML, 1ML ONE (07:36)
[2021-05-01] MEDS ORDERED: GLYCOPYRROLATE 0.2MG/1ML, 5ML ONE (07:36)
[2021-05-01] MEDS ORDERED: ROCURONIUM 10MG/ML,5ML ONE (07:36)
[2021-05-01] MEDS ORDERED: ONDANSETRON 2MG/ML, 2ML ONE (07:36)
[2021-05-01] MEDS ORDERED: PROPOFOL 10 MG/ML, 20ML ONE (07:36)
[2021-05-01] MEDS ORDERED: CEFAZOLIN 1,000 MG ONE (07:36)
[2021-05-01] MEDS ORDERED: VANCOMYCIN 1,700 MG in SODIUM CHLORIDE 0.9% 250 ML IV ONE (08:00)
[2021-05-01] MEDS ORDERED: CHLORHEXIDINE 15 ML UDC ONE (08:01)
[2021-05-01] MEDS ORDERED: CLINDAMYCIN 150 MG/ML, 6ML ONE (08:44)
[2021-05-01 08:56] LABS: ANION GAP 4 mmol/L (5-15); CALCIUM 7.8 mg/dL (8.5-10.1); CHLORIDE 107 mmol/L (98-107)
[2021-05-01 08:58] LABS: CREATININE 1.12 mg/dL (0.55-1.02)
[2021-05-01] MEDS ORDERED: ACETAMINOPHEN 500 MG TABLET PO ONE (09:00)
[2021-05-01] MEDS: METHOCARBAMOL 500 MG TABLET PO SCH ×2 (09:00→20:08)
[2021-05-01] MEDS ORDERED: GABAPENTIN 300 MG CAPSULE PO ONE (09:00)
[2021-05-01] MEDS: SPIRONOLACTONE 25 MG TABLET PO SCH ×2 (09:00→20:08)
[2021-05-01] MEDS ORDERED: OXYcodone 5 MG/5 ML ORAL.SOL UDC PO PRN (09:30)
[2021-05-01] MEDS ORDERED: hydrALAzine 20 MG/ML, 1ML IV PRN (09:30)
[2021-05-01] MEDS ORDERED: FENTANYL PF 100 MCG/2ML IV PRN (09:30)
[2021-05-01] MEDS ORDERED: morphine SULFATE 10 MG/ML, 1ML IVPush PRN (09:30)
[2021-05-01] MEDS ORDERED: PROMETHAZINE 25 MG/ML, 1ML IVPush PRN (09:30)
[2021-05-01] MEDS ORDERED: HALOPERIDOL 5 MG/ML IV PRN (09:30)
[2021-05-01] MEDS ORDERED: LABETALOL 5MG/ML, 20ML IV PRN (09:30)
[2021-05-01] MEDS ORDERED: MEPERIDINE/PF 25MG/0.5ML IVPush PRN (09:30)
[2021-05-01] MEDS ORDERED: FENTANYL PF 100 MCG/2ML ONE (12:07)
[2021-05-01] MEDS ORDERED: OXYcodone 5 MG/5 ML ORAL.SOL UDC ONE (13:30)
[2021-05-01] MEDS ORDERED: CEFAZOLIN PMX 1GM/50ML 50 ML IVPB SCH (15:30)
[2021-05-01] MEDS: DULOXETINE 30 MG CAPSULE.DR PO SCH (17:31)
[2021-05-01] MEDS: TAMSULOSIN 0.4 MG CAP.ER.24H PO SCH (17:31)
[2021-05-01] MEDS: KETOROLAC 30 MG/1 ML IV SCH (17:31)
[2021-05-01] MEDS: POTASSIUM CHLORIDE 20 MEQ in D5%-0.45% NACL 1,000 ML IV SCH (17:31)
[2021-05-01] MEDS: ASPIRIN 81 MG TABLET EC PO SCH ×2 (17:32→20:08)
[2021-05-01] MEDS: CLINDAMYCIN PMX 600MG/50ML 50 ML IV SCH (20:08)
[2021-05-01] MEDS: DOCUSATE 100 MG CAPSULE PO SCH (20:08)
[2021-05-01] MEDS: PREGABALIN 75 MG CAPSULE PO SCH (20:08)
[2021-05-01 20:25] VITALS: BP 105/66
[2021-05-01] MEDS ORDERED: GENTAMICIN 80 MG/2 ML IVPB SCH (20:30)
[2021-05-01] MEDS ORDERED: AMITRIPTYLINE 50 MG TABLET PO SCH (21:00)
[2021-05-01] MEDS: GENTAMICIN 80 MG in SODIUM CHLORIDE 0.9% 50 ML IV SCH (22:04)
[2021-05-02 00:38] VITALS: BP 97/56
[2021-05-02] MEDS: KETOROLAC 30 MG/1 ML IV SCH ×2 (01:46→08:55)
[2021-05-02] MEDS: POTASSIUM CHLORIDE 20 MEQ in D5%-0.45% NACL 1,000 ML IV SCH ×2 (03:31→13:32)
[2021-05-02] MEDS: CLINDAMYCIN PMX 600MG/50ML 50 ML IV SCH (03:43)
[2021-05-02 04:04] VITALS: BP 95/60
[2021-05-02] MEDS: GENTAMICIN 80 MG in SODIUM CHLORIDE 0.9% 50 ML IV SCH (05:48)
[2021-05-02] MEDS ORDERED: DEXAMETHASONE 4 MG/ML, 1ML IVPush ONE (06:00)
[2021-05-02] MEDS: LEVOTHYROXINE 75 MCG TABLET PO SCH ×2 (06:33→09:00)
[2021-05-02] MEDS: OXYcodone IR 5MG TABLET PO PRN ×2 (06:38→11:27)
[2021-05-02 07:00] VITALS: BP 96/59
[2021-05-02] MEDS: SPIRONOLACTONE 25 MG TABLET PO SCH (08:55)
[2021-05-02] MEDS: DOCUSATE 100 MG CAPSULE PO SCH (08:56)
[2021-05-02] MEDS: METHOCARBAMOL 500 MG TABLET PO SCH (08:56)
[2021-05-02] MEDS: ASPIRIN 81 MG TABLET EC PO SCH (08:57)
[2021-05-02] MEDS: DULOXETINE 30 MG CAPSULE.DR PO SCH (08:58)
[2021-05-02] MEDS: PREGABALIN 75 MG CAPSULE PO SCH (08:58)
[2021-05-02] MEDS: TAMSULOSIN 0.4 MG CAP.ER.24H PO SCH (08:58)
[2021-05-02] MEDS ORDERED: BUMETANIDE 1 MG TABLET PO SCH (09:00)
[2021-05-02] MEDS ORDERED: PRAMIPEXOLE 0.5MG TABLET PO SCH (09:00)
[2021-05-02 13:13] VITALS: BP 96/56
== END 2021-05-02 14:08 | disposition home or self-care (01) ==
LOC: OUT 06:02 → ORIP 06:51 → 4NE 15:12
PROVIDERS: ADMIT Orthopaedic Surgery; ATTEND Orthopaedic Surgery
DX: M17.11 Unilateral primary osteoarthritis, right knee (principal); Z20.822 Contact with and (suspected) exposure to COVID-19; M71.21 Synovial cyst of popliteal space [Baker], right knee; I10 Essential (primary) hypertension; G25.81 Restless legs syndrome; E03.9 Hypothyroidism, unspecified; I48.91 Unspecified atrial fibrillation; E66.01 Morbid (severe) obesity due to excess calories; Z79.899 Other long term (current) drug therapy; Z91.040 Latex allergy status
CPT/HCPCS: 27447; 36415; 73560; 80048; 87635; 93005; 96361; 96365; 96366; 96375; 96376; 97161; C1713; C1776; G0378; J0171; J0690; J1100; J1580; J1885; J2250; J2405; J2704; J2710; J2795; J3010; J3370; J3480; J3490; J7050; S0077

== ENCOUNTER → 2021-05-11 | Outpatient (CLI) | payer MEDICARE ==
[~2021-05-11] MED LIST changes: -DEXAMETHASONE 4 MG/ML, 1ML IVPush ONE; +METH-639 PO; +PREG75CA68 PO
== END | disposition home or self-care (01) ==
LOC: RAD 14:26
PROVIDERS: ATTEND Orthopaedic Surgery
DX: Z96.651 Presence of right artificial knee joint (principal)

== ENCOUNTER 2021-06-01 08:31 | Outpatient (CLI) | payer MEDICARE | END 2021-06-01 23:59 | disposition home or self-care (01) | LOC: CVU 08:31 | PROVIDERS: ATTEND Registered Nurse | DX: R60.9 Edema, unspecified (principal) | CPT/HCPCS: 93970 ==